=== PATIENT | male | born 1940 | race Caucasian/White ===

== ENCOUNTER 2022-08-26 06:06 | Inpatient (IN) | payer MEDICARE ==
[~2022-08-26] VITALS: Ht 167.6 cm; Wt 83.0 kg
[2022-08-26] VITALS (10 sets, daily range): BP systolic 92–148; BP diastolic 42–84
--- NOTE | 2022-08-26 06:30 | NUR ---
PT TO ED VIA PRIVATE AUTO FOR CHEST TIGHTNESS, SOB SINCE MIDNIGHT. PT TACHYPNEIC AND SHAKY DURING TRIAGE, PT UNABLE TO CATCH BREATH. PT'S SP02 88% ON ROOM AIR, PT PLACED ON 2L NC. PT IN NAD, UPDATED ON PLAN OF CARE.
[2022-08-26 06:53] LABS: BASO% 0.3 % (0-3); EOS% 0.4 % (0-8); HEMATOCRIT 48.3 % (39.0-50.0); HEMOGLOBIN 15.3 g/dl (14.0-18.0); IMMATURE GRANULOCYTES 0.1 % (0.0-5.0); LYMPH% 5.6 % (15-41); MEAN CORPUSCULAR HGB 29.1 pG CALC (26.0-32.0); MEAN CORPUSCULAR HGB CONC 31.7 g/dL CAL (32.0-36.0); MONO% 6.3 % (2-13); NEUT# 13.82 thou/uL (1.82-7.42); NEUT% 87.3 % (42-76); RED BLOOD COUNT 5.25 mill/uL (4.70-6.10); RED CELL DISTRI WIDTH 13.1 % (11.5-15.5)
--- NOTE | 2022-08-26 07:05 | NUR ---
TRANSITION OF CARE, BEDSIDE REPORT FROM PHOTOGRAPH RETOUCHER RN
[2022-08-26 07:09] LABS: ALBUMIN 4.7 g/dL (3.2-5.0); ALKALINE PHOSPHATASE 102 u/l (38-126); ANION GAP 13 (6-22 (CALC)); BUN 38 mg/dL (8-23); BUN/CREATININE RATIO 25 (12-20 (CALC)); CARBON DIOXIDE 24 mmol/l (22-30); CHLORIDE 107 mmol/l (95-108); CREATININE 1.5 mg/dL (0.7-1.3); GFR FOR AFR.AMER. 54 ML/MIN (>=60 (CALC)); GFR OTHER RACES 45 ML/MIN (>=60 (CALC)); SGOT/AST 45 u/l (19-48); SODIUM 138 mmol/l (137-146); TOTAL PROTEIN 7.7 g/dL (6.3-8.2)
[2022-08-26] MEDS ORDERED: ASPIRIN81 MG PO (07:10)
[2022-08-26] MEDS ORDERED: ELIQUIS5 MG PO (07:11)
[2022-08-26] MEDS ORDERED: LISINOPRIL10 MG PO (07:12)
[2022-08-26] MEDS ORDERED: CRESTOR20 MG PO (07:13)
[2022-08-26] MEDS ORDERED: TAMSULOSIN HCL0.4 MG PO (07:14)
[2022-08-26] MEDS ORDERED: FLONASE SE27.5 MCG/S (07:15)
[2022-08-26] MEDS ORDERED: BREZTRI AEROSPH1 AER (07:16)
[2022-08-26] MEDS ORDERED: ALBUTERO2 XX (07:17)
--- NOTE | 2022-08-26 08:30 | NUR ---
PATIENT RESTING IN BED WITH STABLE VS AND IN NAD. ANTIBIOTICS ARE INFUSING AND PATIENT DECLINES FURTHER NEEDS AT THIS TIME.
--- NOTE | 2022-08-26 09:32 | NUR ---
Reassessment of patient completed. No distress noted.
[2022-08-26 10:04] LABS: URINE BILIRUBIN - DIPSTICK NEGATIVE (NEGATIVE); URINE BLOOD DIPSTICK NEGATIVE (NEGATIVE); URINE COLOR YELLOW; URINE GLUCOSE - DIPSTICK NEGATIVE (NEGATIVE); URINE KETONE NEGATIVE (NEGATIVE); URINE LEUK ESTERASE NEGATIVE (NEGATIVE); URINE PH 5.5 (4.5-8.0); URINE PROTEIN - DIPSTICK NEGATIVE (NEG-TRACE); URINE SPECIFIC GRAVITY 1.025; URINE UROBILINOGEN - DIPSTICK 0.2 E.U./dL (0.2)
[2022-08-26 10:05] LABS: URINE NITRITE - DIPSTICK NEGATIVE (Negative)
--- NOTE | 2022-08-26 10:05 | NUR ---
TELE PLACED ON PATIENT FOR ADMISSION.
--- NOTE | 2022-08-26 10:12 | NUR ---
PT ARRIVED VIA WC WITH WEAVING INSPECTOR. ORIENTATED PT TO ROOM AND CALL [facility] SYSTEM. FLUIDS/ SNACKS PROVIDED. ADMSSION ASSESSMENT COMPLETED. DISCUSSED PT POC. PT INDICATED UNDERSTANDING. FAMILY MEMBER AT BEDSIDE. TELE MONITOR IN PLACE, CONTINOUS MONITORING PER ED FALL/SAFTEY PRECAUTIONINS INPLACE. CALL STAN BURRIS REACH PRECAUTIONS IN PLACE.
[2022-08-26] MEDS ORDERED: NORVASC5 M1 PO (10:20)
--- NOTE | 2022-08-26 12:15 | NUR ---
PT EATING LUNCH. WITH FAMILY MEMBER AT BEDSIDE. STATES NO NEEDS AT THIS TIME. FALL/SAFTEY PRECAUTION IN PLACE. CALL LIGHT WITHIN REACH.
--- NOTE | 2022-08-26 15:28 | NUR ---
TEMP: 99 FROM: 100.6
--- NOTE | 2022-08-26 15:29 | NUR ---
TEMP 100.6. MEDICATED SEE EMAR. PT BREATHING EVEN AND UNLABORED. STATES NO PAIN. FACE IS FLUSHED. FALL/SAFTEY PRECAUTION IN PLACE. CALL LIGHT WITHIN REACH
--- NOTE | 2022-08-26 17:32 | NUR ---
BLADDER SCANNED PT SHOWING 290CC ASSISTANT DISTRICT ATTORNEY NOTIFIED NO NEW ORDERS AT THIS TIME.
--- NOTE | 2022-08-26 20:00 | NUR ---
RECEIVED REPORT FROM NURSE JAKE TROTTER RESTING IN BED, IN ROOM, ON O2 @ 1LPM VIA NC, BREATHING UNLABORED, HAS ONGOING IV NS@ 80CC/HR INFUSING WELL, ON TELEMETRY SR WITH BONNY Gonzáles, DENIES PAIN AT THIS TIME, REMAINS ON ISOLATION FOR INFLUENZA, CALL LIGHT IN REACH.
--- NOTE | 2022-08-27 | NUR ---
PATIENT RESTING IN BED, NOT IN DISTRESS, DENIES PAIN OR DISCOMFORTS AT THIS TIME, CALL LIGHT IN REACH.
--- NOTE | 2022-08-27 04:00 | NUR ---
PATIENT RESTING WITH EYES CLOSED, BREATHING NOT LABORED, ON O2@ 1LPM VIA NC, CALL LIGHT IN REACH.
[2022-08-27 05:09] VITALS: BP 118/62
[2022-08-27 05:50] LABS: BASO% 0.5 % (0-3); EOS% 1.3 % (0-8); HEMOGLOBIN 13.4 g/dl (14.0-18.0); IMMATURE GRANULOCYTES 0.1 % (0.0-5.0); LYMPH% 12.2 % (15-41); MEAN CELL VOLUME 92.5 fL CALC (80.0-100.0); MEAN CORPUSCULAR HGB 29.6 pG CALC (26.0-32.0); MEAN CORPUSCULAR HGB CONC 32.1 g/dL CAL (32.0-36.0); MONO% 10.5 % (2-13); NEUT# 7.35 thou/uL (1.82-7.42); NEUT% 75.4 % (42-76); RED BLOOD COUNT 4.52 mill/uL (4.70-6.10); RED CELL DISTRI WIDTH 13.2 % (11.5-15.5)
[2022-08-27 06:03] LABS: HEMATOCRIT 41.8 % (39.0-50.0)
[2022-08-27 06:27] LABS: ALKALINE PHOSPHATASE 60 u/l (38-126); ANION GAP 10 (6-22 (CALC)); BILIRUBIN, TOTAL 2.4 mg/dL (0.2-1.3); BUN 24 mg/dL (8-23); BUN/CREATININE RATIO 20 (12-20 (CALC)); CARBON DIOXIDE 20 mmol/l (22-30); CHLORIDE 111 mmol/l (95-108); CREATININE 1.2 mg/dL (0.7-1.3); GFR FOR AFR.AMER. > 60 ML/MIN (>=60 (CALC)); GFR OTHER RACES 58 ML/MIN (>=60 (CALC)); POTASSIUM 4.8 mmol/l (3.5-5.1); SGOT/AST 23 u/l (19-48); SODIUM 136 mmol/l (137-146)
[2022-08-27 06:31] LABS: ALBUMIN 3.4 g/dL (3.2-5.0); TOTAL PROTEIN 5.7 g/dL (6.3-8.2)
[2022-08-27 07:24] VITALS: BP 139/68
[2022-08-27 10:29] VITALS: BP 122/74
[2022-08-27 15:16] VITALS: BP 118/68
[2022-08-27 18:56] VITALS: BP 131/56
--- NOTE | 2022-08-27 19:58 | NUR ---
RECIEVED REPORT FROM [facility] NURSE. PT NOTED LAYING IN BED HIGH FOWLERS. NASAL CANNULA IN PLACE ON 2L O2. PT DENIES ANY PAIN AT THIS TIME. PT IS A/OX3. CALL LIGHT WITHIN REACH AND SAFETYPRECAUTIONS IN [place].
--- NOTE | 2022-08-28 | NUR ---
PT IN BED SLEEPING. NASAL CANNULA IN PLACE AND PT O2 SATS STABLE. NO S/S OF DISTRESS. CALL LIGHT WITHIN REACH AND SAFETY PRECAUTIONS IN PLACE.
[2022-08-28 00:24] VITALS: BP 109/67
[2022-08-28 04:11] VITALS: BP 121/61
--- NOTE | 2022-08-28 05:00 | NUR ---
PT LAYING IN BED SUPINE. DENIES ANY PAIN AT THIS TIME. NEW BAG OF NORMAL SALINE HUNG PER EMAR. CALL LIGHT WITHIN REACH AND SAFETY PRECAUTIONS INPLACE.
[2022-08-28 07:20] VITALS: BP 147/88
--- NOTE | 2022-08-28 08:00 | NUR ---
Patient sitting up on the side of the bed eating breakfast. Breathing is even and unlabored. Patient denies any pain at this time. No issues or concerns at this time. Will continue to monitor.
--- NOTE | 2022-08-28 08:55 | NUR ---
Patient sititng up on side of the bed at bedside. Patient NC removed. Saturation level maintaining at 97%. Will continue to monitor.
--- NOTE | 2022-08-28 08:55 | NUR ---
pt noted on o2 at 2L nc; o2 sat 97-98%; pt converted to ra per headline writer; cont pulse ox set up at this time and pt closely monitored; plan of care explained to both pt and spouse; both aware to notify staff immed if shortness of breath occur 1010- remains on ra; o2 sat 97%; headline writer ambulated this pt accompanied per spouse; o2 sat noted lowest at 92%; HR noted to increase to 132 max; tele reviewed; no change in rhythm/ ST; final resting o2 96% on ra; HR noted sr/pvc 80s; MD to be informed of walk test results
[2022-08-28 10:10] VITALS: BP 121/62
--- NOTE | 2022-08-28 12:11 | NUR ---
Patient sitting up in bed. at bedside. Patient denies any pain. Dr. Burk at bedside. Patient's NS ot be adjusted to KVO per Dr. Burk. Patient to be discharged pending EKG results. Patient tolerated the walk test and able to remain off of oxygen and on RA since 854. Will continue to monitor.
[2022-08-28] MEDS ORDERED: VIBRAMYCIN100 M2 PO (12:22)
[2022-08-28] MEDS ORDERED: MEDDOSEPAK PO (12:22)
[2022-08-28] MEDS ORDERED: TAM75CAP PO (12:24)
--- NOTE | 2022-08-28 16:07 | NUR ---
Discharge instructions given. Patient verbalizes understanding of same. Discharged in stable condition via Wheelchair to Home with significant other. All belongings sent with pt.
== END 2022-08-28 16:04 | disposition home or self-care (01) | DRG 193 ==
LOC: ED 06:06 → ED-I 08:31 → ED 08:59 → MS2 09:00
PROVIDERS: Emergency Medicine; Nurse Practitioner Family; ADMIT Internal Medicine; ATTEND Internal Medicine
DX: J10.00 Influenza due to other identified influenza virus with unspecified type of pneumonia (principal); J96.01 Acute respiratory failure with hypoxia; J44.0 Chronic obstructive pulmonary disease with (acute) lower respiratory infection; N17.9 Acute kidney failure, unspecified; J18.9 Pneumonia, unspecified organism; I10 Essential (primary) hypertension; I25.10 Atherosclerotic heart disease of native coronary artery without angina pectoris; I49.5 Sick sinus syndrome; E78.5 Hyperlipidemia, unspecified; I25.2 Old myocardial infarction; Z95.1 Presence of aortocoronary bypass graft; Z87.891 Personal history of nicotine dependence; Z20.822 Contact with and (suspected) exposure to COVID-19